=== PATIENT | female | born 1960 | race Caucasian/White ===

== ENCOUNTER 2016-10-10 06:33 | Emergency (ER) | payer MEDICARE, OTHER ==
[~2016-10-10 06:33] MED LIST: BUSPAR15 M1 PO; CALTRA600D PO; CRESTOR10 PO; DEXILANT; DEXILANT DR PO; DURA25 TOP; FOLIC ACID PO; FOLIC PO; Folic Acid PO; GEODON60 MG PO; HALCION0.25 MG PO; HEMOCYTET PO; HUMIRA SC; KAPIDEX60 MG PO; LOM PO; LORTAB10 PO; METHOC500B PO; MSIMMREL PO; MTX2.5 PO; NEUR600 PO; NEUR800 PO; NEXIUM40 PO; NORCO1 TAB PO; P10 PO; PERCOCET1 TA2 PO; PR25 PO; PRILOSEC OTC20 MG PO; PRILOSEC40 MG PO; PRISTIQ100 MG PO; PROTONIX PO; SAPHRIS10 MG SL; TOPAMAX100 PO; TRILEP150 PO; VITAMIN B-122500 MCG SL; VITAMIN D2000 UNIT PO; VITAMIN D400 UNI1 PO; VIVELLE SY0.05 MG/24 TOP; VIVELLE-DOT0.025 MG TOP; VIVELLE0.05 MG TD; XANAX1 MG PO; XANAX2 MG PO; ZYDONE1 TA2 PO
[2016-10-10 06:52] LABS: BASOPHILS 0.4 %; BASOPHILS ABSOLUTE 0.02 10/3/uL (0.0-0.16); EOSINOPHILS 1.7 %; EOSINOPHILS ABSOLUTE 0.09 10/3/uL (0.0-0.53); ER CBC TAT 0 Hrs 09 Mins; HEMATOCRIT 38.3 % (36.0-48.0); HEMOGLOBIN 12.9 g/dL (12.0-16.0); IMMATURE GRANULOCYTES 0.4 %; IMMATURE GRANULOCYTES ABSOLUTE 0.02 10/3/uL (0.0-0.11); LYMPHOCYTES 34.6 %; LYMPHOCYTES ABSOLUTE 1.86 10/3/uL (0.67-4.30); MANUAL DIFF NO %; MEAN CORPUS HGB CONC 33.7 g/dL (32.0-36.0); MEAN CORPUSCULAR HEMOGLOB 31.2 pg (26.0-34.0); MEAN CORPUSCULAR VOLUME 92.5 fL (80-100); MEAN PLATELET VOLUME 11.5 fL (9.2-13.0); MONOCYTES 12.8 %; MONOCYTES ABSOLUTE 0.69 10/3/uL (0.21-1.20); NEUTROPHILS 50.1 %; NEUTROPHILS ABSOLUTE 2.69 10/3/uL (2.02-8.40); PLATELET COUNT 175 10/3/uL (150-400); RBC DISTRIBUTION WIDTH 12.6 % (12.0-16.0); RED CELL COUNT 4.14 10/6/uL (4.0-5.6); WHITE BLOOD CELLS 5.4 10/3/uL (4.5-10.5)
[2016-10-10 06:59] LABS: PARTIAL THROMBO TIME 29.6 SEC (22.5-37.2)
[2016-10-10 07:10] LABS: BUN (BLOOD UREA NITROGEN) 10 MG/DL (6-23); CHEST PAIN PROFILE TAT 0 Hrs 23 Mins; CHLORIDE, SERUM 106 MMOL/L (96-112); CO2 (CARBON DIOXIDE) 26 MMOL/L (24-34); CREATININE 0.89 MG/DL (0.55-1.02); GFR AFRICAN AMERICAN 86 ML/MIN (>=60); GFR NON AFRICAN AMERICAN 74 ML/MIN (>=60); GLUCOSE, SERUM 85 MG/DL (60-99); POTASSIUM, SERUM 3.8 MMOL/L (3.5-5.3); SODIUM, SERUM 138 MMOL/L (135-148); TROPONIN I <0.02 NG/ML (<0.05)
[2016-10-10 08:42] LABS: ASCORBIC ACID (UR NOT ORDER) NEG (NEG); BILIRUBIN, URINE NEGATIVE (NEG); ER URINALYSIS TAT 0 Hrs 21 Mins; KETONE, URINE NEGATIVE (NEG); LEUKOCYTE ESTERASE(NOT OR NEG (NEG); NITRITE (URINE) NEG (NEG); WBC (NOT ORDERED) (RFLEX) 1 (0-5)
== END 2016-10-10 09:32 | disposition home or self-care (01) ==
LOC: ER 06:33
PROVIDERS: Nurse Practitioner
PROC: 0HQ1XZZ Repair Face Skin, External Approach (ICD-10-PCS; principal; 2016-10-10)
DX: S09.90XA Unspecified injury of head, initial encounter (principal); S05.42XA Penetrating wound of orbit with or without foreign body, left eye, initial encounter; K21.9 Gastro-esophageal reflux disease without esophagitis; F32.9 Major depressive disorder, single episode, unspecified; F41.9 Anxiety disorder, unspecified; D64.9 Anemia, unspecified; Z86.73 Personal history of transient ischemic attack (TIA), and cerebral infarction without residual deficits; Z88.0 Allergy status to penicillin; Z88.5 Allergy status to narcotic agent; Z88.8 Allergy status to other drugs, medicaments and biological substances; Z79.899 Other long term (current) drug therapy; W19.XXXA Unspecified fall, initial encounter
CPT/HCPCS: 70450; 71010; 80048; 81001; 83735; 84484; 85025; 85610; 85730; 93005; 99285; A9270-GY